=== PATIENT | male | born 1940 | race Hispanic/Latino ===

== ENCOUNTER 2019-12-27 07:18 | Observation (INO) | payer SELFPAY ==
--- NOTE | 2019-12-27 07:50 | RAD ---
XR Chest 1 View Portable History: Chest pain with shortness of breath Comparison: None. Findings: Mild ectasia of the ascending aorta. Mild background lung hyperinflation. No pneumothorax. No significant effusion. No airspace consolidation. No acute osseous abnormality. Impression: 1. Mild ectasia of the aorta with prominence of the pulmonary arteries suggestive pulmonary hypertens ion. No evidence for pneumonia. 2. Mild background emphysema.
[2019-12-27 08:06] LABS: #Lymphocytes 1.2 thou/uL (1.20-3.40); #Monocytes 0.7 thou/uL (0.11-0.59); #Neutrophils 7.2 thou/uL (1.40-6.50); %Basophils 0.4 % (0.0-1.0); %Eosinophils 0.4 % (0.0-10.0); %Monocytes 7.6 % (0.0-10.0); %Neutrophils 78.5 % (42.0-75.0); Hemoglobin 16.4 g/dL (14.0-18.0); Mean Corpuscular HGB CONC 33.7 g/dL (32.0-36.0); Mean Corpuscular Hemoglobin 30.6 pg (27.0-31.0); Mean Corpuscular Volume 90.7 fL (78.0-98.0); Mean Platelet Volume 8.5 fL (7.4-10.4); Platelet Count 181 thou/uL (130-400); RBC Distribution Width 12.5 % (11.5-14.5); Red Blood Cell (RBC) Count 5.36 mill/uL (4.70-6.10); White Blood Cell (WBC) Count 9.1 thou/uL (4.8-10.8)
[2019-12-27] MEDS ORDERED: Cefepime 2 GM VIAL ONE (08:11)
[2019-12-27 08:31] LABS: ALT (SGPT) 36 U/L (8-55); AST (SGOT) 37 U/L (5-34); Albumin 4.6 g/dL (3.4-4.8); Alkaline Phosphatase 100 U/L (40-110); Anion Gap 14 mmol/L (10-20); BUN (Urea Nitrogen) 12 mg/dL (8.4-25.7); Bilirubin, Total 0.4 mg/dL (0.2-1.2); Calc. Creatinine Clearance 0 mL/min (70-130); Calcium 9.5 mg/dL (7.8-10.44); Carbon Dioxide 29 mmol/L (23-31); Chloride 99 mmol/L (98-107); Estimated GFR-MDRD 64; Globulin 4.1 g/dL (2.4-3.5); Glucose 105 mg/dL (83-110); Potassium 3.5 mmol/L (3.5-5.1); Protein, Total 8.7 g/dL (5.8-8.1); Sodium 138 mmol/L (136-145)
[2019-12-27] MEDS ORDERED: Oseltamivir 75 MG CAP PO SCH (09:00)
[2019-12-27] MEDS ORDERED: Acetaminophen 500 MG TAB ONE (09:06)
[2019-12-27 09:09] LABS: Bacteria/HPF 4+ HPF (None Seen); Bilirubin Negative (Negative); Blood, Urine 1+ (Negative); Clarity Turbid (Clear); Glucose, Urine (Dipstick) Normal (Negative); Leukocyte 500 Leu/uL (Negative); Nitrite 2+ (Negative); Protein, Urine (Dipstick) 10 mg/dL (Neg-Trace); Squamous Epithelial None Seen HPF (0-3); Urobilinogen Normal mg/dL (Less than 2); WBC/HPF Greater than 50 HPF (0-3)
--- NOTE | 2019-12-27 10:02 | PDOC.HHP ---
Hospitalist HPI - History of Present Illness SOB, Chest pain History of Present Illness: The patient is [place] speaking, so an medical care evaluation specialist was used for the H&P in the ER. The patient is a 79/M with PMH significant for HTN presents to the ER for chest pain and sob x 1 day. The patient reports generalized chest pain, describes as aching, only hurts when he coughs, reports cough is non productive, has associated fever, chills, body aches and sore throat. Denies heart palpitations , dizziness, diaphoresis, orthopnea, lower extremity swelling. Denies any unexpected weight loss, lives in single family dwelling. Taking nothing for symptoms. He lives in [place], he has been in the [place] for the past 2 months with his family. ED Course: BP: 166/105, Pulse: 120, Resp: 22, Temp: 102.5 (Oral), Pain: 10, O2 sat: 94 on ( Room Air) EKG Sinus tachycardia CXR negative for PNA Troponin negative BNP unremarkable Influenza A positive LA 2.0 WBC 9.1 UA consistent for UTI Given Duoneb Tylenol 1gm Cefipime and vanc IVPB Tamiflu 75mg z 1 dose 1L NS Hospitalist ROS - Review of Systems Constitutional: reports: fever, chills, malaise Eyes: denies: pain, vision change, conjunctivae inflammation, eyelid inflammation, redness, other ENT: reports: throat pain. denies: ear pain, ear discharge, nose pain, nose discharge, nose congestion Respiratory: reports: cough, dry, shortness of breath, pleuritic pain. denies: hemoptysis Cardiovascular: denies: chest pain, palpitations, orthopnea, paroxysmal noc. dyspnea, edema, light headedness Gastrointestinal: denies: nausea, vomiting, abdominal pain, diarrhea, constipation, melena, hematochezia, other Genitourinary: denies: dysuria, frequency, incontinence, hematuria, retention, other Skin: denies: rash, lesions, bruising Neurological: denies: weakness, numbness, incoordination, change in speech Hospitalist History - Past Medical History Cardiac: reports: HTN Renal/: reports: Benign prostatic enlarg. 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 - Exam General Appearance: ill appearing Eye: anicteric sclera ENT: normocephalic atraumatic Neck: supple, no JVD, no thyromegaly, no lymphadenopathy Heart: RRR, no murmur, no gallops, no rubs, normal peripheral pulses Respiratory: no rales, no ronchi Respiratory - other findings: BLL exp wheezes Gastrointestinal: soft, non-tender, normal bowel sounds, no guarding, no rigidity Gastrointestinal - other findings: No CVAT Extremities: no cyanosis, no edema Skin: no lesions, no rashes Neurological: cranial nerve grossly intact, no focal deficits Musculoskeletal: normal strength Psychiatric: normal affect, A&O x 3 Hospitalist Results - Labs Result Diagrams: 12/27/19 07:36 12/27/19 07:36 Lab results: WBC 9.1 thou/uL (4.8-10.8) 12/27/19 07:36 Hgb 16.4 g/dL (14.0-18.0) 12/27/19 07:36 Hct 48.6 % (42.0-52.0) 12/27/19 07:36 MCV 90.7 fL (78.0-98.0) 12/27/19 07:36 Plt Count 181 thou/uL (130-400) 12/27/19 07:36 Neutrophils % 78.5 % (42.0-75.0) H 12/27/19 07:36 Sodium 138 mmol/L (136-145) 12/27/19 07:36 Potassium 3.5 mmol/L (3.5-5.1) 12/27/19 07:36 Chloride 99 mmol/L (98-107) 12/27/19 07:36 Carbon Dioxide 29 mmol/L (23-31) 12/27/19 07:36 BUN 12 mg/dL (8.4-25.7) 12/27/19 07:36 Creatinine 1.12 mg/dL (0.7-1.3) 12/27/19 07:36 Glucose 105 mg/dL (83-110) 12/27/19 07:36 Lactic Acid 2.0 mmol/L (0.5-2.2) 12/27/19 07:36 Calcium 9.5 mg/dL (7.8-10.44) 12/27/19 07:36 Total Bilirubin 0.4 mg/dL (0.2-1.2) 12/27/19 07:36 AST 37 U/L (5-34) H 12/27/19 07:36 ALT 36 U/L (8-55) 12/27/19 07:36 Alkaline Phosphatase 100 U/L (40-110) 12/27/19 07:36 Troponin I 0.013 ng/mL (< 0.028) 12/27/19 07:36 B-Natriuretic Peptide Less than 10.0 pg/mL (0-100) 12/27/19 07:36 Serum Total Protein 8.7 g/dL (5.8-8.1) H 12/27/19 07:36 Albumin 4.6 g/dL (3.4-4.8) 12/27/19 07:36 Urine Ketones Negative mg/dL (Negative) 12/27/19 08:10 Urine Blood 1+ (Negative) A 12/27/19 08:10 Urine Nitrite 2+ (Negative) A 12/27/19 08:10 Ur Leukocyte Esterase 500 Julianne/uL (Negative) A 12/27/19 08:10 Urine RBC 7-10 HPF (0-3) A 12/27/19 08:10 Urine WBC Greater than 50 HPF (0-3) A 12/27/19 08:10 Ur Squamous Epith Cells None Seen HPF (0-3) 12/27/19 08:10 Urine Bacteria 4+ HPF (None Seen) A 12/27/19 08:10 Additional comment: Laboratory Tests 12/27/19 12/27/19 12/27/19 07:36 07:36 07:36 Lactic Acid 2.0 Troponin I 0.013 B-Natriuretic Peptide Less than 10.0 - EKG Interpretation EKG: Sinus tachycardia, no ST elevations - Radiology Interpretation Chest x-ray Status: report reviewed by me Hospitalist H&P A/P - Plan Plan: Wells PE score 1.5, low risk Impression: Sepsis Influenza A, acute UTI, acute HTN, chronic BPH, chronic Plan: IVF resuscitation Continue Tamiflu Droplet precautions Duonebs, cough meds prn get Procalcitonin, TSH, CE x 2 Blood CX pending Start rocephin tomorrow order Urine culture Restart home meds when reconciled Full Code DPOA daughter, Carrie [phone]
[2019-12-27 12:43] LABS: Troponin I Less than 0.010 ng/mL (< 0.028)
[2019-12-27] MEDS: Acetaminophen 325 MG TAB PO PRN ×2 (15:44→20:32)
[2019-12-27] MEDS: Guaifenesin DM 100-10/5 ML UDCUP PO PRN (15:44)
[2019-12-27 15:52] VITALS: BMI 25.9
[2019-12-27 16:07] LABS: Troponin I Less than 0.010 ng/mL (< 0.028)
[2019-12-27] MEDS: Sodium Chloride 0.9% 1,000 ML IV SCH (16:54)
[2019-12-27] MEDS: Oseltamivir 75 MG CAP PO SCH (20:32)
[2019-12-27] MEDS: Benzonatate 100 MG CAP PO PRN (20:32)
[2019-12-28] MEDS: Sodium Chloride 0.9% 1,000 ML IV SCH ×3 (01:44→09:03)
[2019-12-28] MEDS: Acetaminophen 325 MG TAB PO PRN ×4 (01:46→20:10)
[2019-12-28] MEDS: Guaifenesin DM 100-10/5 ML UDCUP PO PRN ×4 (01:46→20:09)
[2019-12-28 05:38] LABS: Hemoglobin 12.4 g/dL (14.0-18.0); Mean Corpuscular HGB CONC 34.5 g/dL (32.0-36.0); Mean Corpuscular Hemoglobin 31.3 pg (27.0-31.0); Mean Corpuscular Volume 90.7 fL (78.0-98.0); Mean Platelet Volume 8.1 fL (7.4-10.4); Platelet Count 128 thou/uL (130-400); RBC Distribution Width 12.4 % (11.5-14.5); Red Blood Cell (RBC) Count 3.97 mill/uL (4.70-6.10); White Blood Cell (WBC) Count 5.2 thou/uL (4.8-10.8)
[2019-12-28 05:40] LABS: ALT (SGPT) 25 U/L (8-55); AST (SGOT) 31 U/L (5-34); Albumin 3.1 g/dL (3.4-4.8); Alkaline Phosphatase 59 U/L (40-110); Anion Gap 11 mmol/L (10-20); BUN (Urea Nitrogen) 13 mg/dL (8.4-25.7); Bilirubin, Total 0.4 mg/dL (0.2-1.2); Calc. Creatinine Clearance 75 mL/min (70-130); Calcium 7.7 mg/dL (7.8-10.44); Carbon Dioxide 24 mmol/L (23-31); Chloride 104 mmol/L (98-107); Estimated GFR-MDRD 84; Globulin 2.7 g/dL (2.4-3.5); Glucose 96 mg/dL (83-110); Potassium 3.3 mmol/L (3.5-5.1); Protein, Total 5.8 g/dL (5.8-8.1); Sodium 136 mmol/L (136-145)
[2019-12-28 06:16] LABS: Band 7 % (5-11); Eosinophils 1 % (0-10); Lymphocytes 17 % (21-51); MDiff Complete? YES; Monocytes 17 % (0-10); Neutrophil 56 % (42-75); Reactive Lymphocytes 2 % (0-10)
[2019-12-28] MEDS ORDERED: FLU VACC TS2019-20(65YR UP)/PF 180 MCG/0.5 ML SYRINGE IM ONE (09:00)
[2019-12-28] MEDS ORDERED: Prevnar 13-Val Conj/PF 0.5 ML SYRINGE IM ONE (09:00)
[2019-12-28] MEDS: cefTRIAXone\\ROCEPHIN 1 GM in Sodium Chloride 0.9% 100 ML IVPB SCH (09:02)
[2019-12-28] MEDS: Oseltamivir 75 MG CAP PO SCH ×2 (09:02→20:09)
[2019-12-28] MEDS: Benzonatate 100 MG CAP PO PRN ×2 (10:57→16:16)
--- NOTE | 2019-12-28 17:39 | PDOC.HOSPP ---
- Subjective Encounter Date: 12/28/19 Encounter Time: 07:00 Subjective: Pt seen for followup re: sepsis. feels slightly better. - Objective Vital Signs & Weight: Vital Signs (12 hours) Temp Pulse Pulse Pulse Resp BP BP 12/28/19 16:12 100.2 F H 70 21 H 12/28/19 11:24 99.5 F 76 22 H 12/28/19 11:10 73 68 150/85 H 12/28/19 08:49 100.3 F H 69 20 125/66 BP BP Pulse Ox 12/28/19 16:12 121/66 100 12/28/19 11:24 150/85 H 93 L 12/28/19 11:10 199/80 H 12/28/19 08:49 100 Weight Weight 165 lb 3.2 oz I&O: 12/27/19 12/28/19 12/29/19 06:59 06:59 06:59 Intake Total 1440 Balance 1440 Result Diagrams: 12/28/19 04:30 12/28/19 04:30 Additional Labs: Labs and MARs reviewed by me EKG Reviewed by me: Yes (Tele; NSR) Hospitalist ROS - Review of Systems Constitutional: reports: fever, weakness. denies: chills, sweats, malaise Respiratory: reports: cough, sputum. denies: dry, shortness of breath, hemoptysis, SOB with excertion, pleuritic pain, wheezing Cardiovascular: denies: chest pain, palpitations, orthopnea, paroxysmal noc. dyspnea, edema, light headedness Gastrointestinal: denies: nausea, vomiting, abdominal pain, diarrhea, constipation, melena, hematochezia Genitourinary: denies: dysuria, frequency, incontinence, hematuria, retention - Medication Medications: Active Medications Generic Name Dose Route Start Last Admin Trade Name Freq PRN Reason Stop Dose Admin Acetaminophen 650 mg 12/27/19 09:38 12/28/19 16:16 Tylenol PO 650 mg Q4H PRN Administration Headache/Fever/Mild Pain (1-3) Benzonatate 100 mg 12/27/19 09:48 12/28/19 16:16 Tessalon PO 100 mg TIDPRN PRN Administration Cough Guaifenesin/Dextromethorphan 15 ml 12/27/19 09:38 12/28/19 16:16 Robitussin Dm PO 15 ml Q4H PRN Administration Cough Sodium Chloride 1,000 mls @ 120 mls/hr 12/27/19 09:45 12/28/19 09:03 Normal Saline 0.9% IV 1,000 mls .Q8H20M MARTINA Administration Ceftriaxone Sodium 1 gm/ 100 mls @ 200 mls/hr 12/28/19 09:00 12/28/19 09:02 Sodium Chloride IVPB 100 mls Q24HR MARTINA Administration Oseltamivir Phosphate 75 mg 12/27/19 21:00 12/28/19 09:02 Tamiflu PO 01/01/20 09:01 75 mg BID MARTINA Administration - Exam General Appearance: NAD Eye: anicteric sclera ENT: no oropharyngeal lesions Neck: supple, symmetric, no thyromegaly, no lymphadenopathy Heart: RRR, no gallops, no rubs, normal peripheral pulses Respiratory: no rales, no ronchi, normal chest expansion, wheezes Gastrointestinal: soft, non-tender, normal bowel sounds, no palpable masses Skin: no rashes Psychiatric: normal affect, normal behavior, oriented to person, oriented to place Hosp A/P - Plan Assessment: Sepsis, acute Influenza A, acute UTI, acute HTN, chronic BPH, chronic Plan: Sepsis secondary to Influenza A/UTI. Continue Tamiflu Droplet precautions Duonebs, cough meds prn Blood CX pending Continue ceftriaxone order Urine culture Full Code
[2019-12-29] MEDS: Sodium Chloride 0.9% 1,000 ML IV SCH ×3 (02:55→21:06)
[2019-12-29] MEDS: Acetaminophen 325 MG TAB PO PRN (09:47)
[2019-12-29] MEDS: cefTRIAXone\\ROCEPHIN 1 GM in Sodium Chloride 0.9% 100 ML IVPB SCH (09:48)
[2019-12-29] MEDS: Benzonatate 100 MG CAP PO PRN ×2 (09:48→17:25)
[2019-12-29] MEDS: Guaifenesin DM 100-10/5 ML UDCUP PO PRN ×2 (09:48→17:25)
[2019-12-29] MEDS: Oseltamivir 75 MG CAP PO SCH ×2 (09:48→21:05)
--- NOTE | 2019-12-29 14:03 | PDOC.HOSPP ---
- Subjective Encounter Date: 12/29/19 Encounter Time: 14:01 Subjective: Pt seen for followup re: - Objective Vital Signs & Weight: Vital Signs (12 hours) Temp Pulse Resp BP BP Pulse Ox 12/29/19 11:28 98.4 F 63 20 152/90 H 100 12/29/19 08:23 98.4 F 65 18 165/78 H 98 12/29/19 03:49 98.4 F 64 18 169/80 H 94 L Weight Weight 165 lb 3.2 oz I&O: 12/28/19 12/29/19 12/30/19 06:59 06:59 06:59 Intake Total 1440 3420 Balance 1440 3420 Result Diagrams: 12/28/19 04:30 12/28/19 04:30 Hospitalist ROS - Medication Medications: Active Medications Generic Name Dose Route Start Last Admin Trade Name Freq PRN Reason Stop Dose Admin Acetaminophen 650 mg 12/27/19 09:38 12/29/19 09:47 Tylenol PO 650 mg Q4H PRN Administration Headache/Fever/Mild Pain (1-3) Benzonatate 100 mg 12/27/19 09:48 12/29/19 09:48 Tessalon PO 100 mg TIDPRN PRN Administration Cough Guaifenesin/Dextromethorphan 15 ml 12/27/19 09:38 12/29/19 09:48 Robitussin Dm PO 15 ml Q4H PRN Administration Cough Sodium Chloride 1,000 mls @ 120 mls/hr 12/27/19 09:45 12/29/19 09:49 Normal Saline 0.9% IV 1,000 mls .Q8H20M MARTINA Administration Ceftriaxone Sodium 1 gm/ 100 mls @ 200 mls/hr 12/28/19 09:00 12/29/19 09:48 Sodium Chloride IVPB 100 mls Q24HR MARTINA Administration Oseltamivir Phosphate 75 mg 12/27/19 21:00 12/29/19 09:48 Tamiflu PO 01/01/20 09:01 75 mg BID MARTINA Administration Sodium Chloride 10 ml 12/27/19 09:38 12/29/19 09:48 Flush - Normal Saline IVF 10 ml Q12H PRN Administration Saline Flush Hosp A/P - Plan Assessment: Sepsis, acute Influenza A, acute UTI, acute HTN, chronic BPH, chronic Plan: Sepsis secondary to Influenza A/UTI. Continue Tamiflu Droplet precautions Duonebs, cough meds as needed Blood CX pending Continue ceftriaxone, follow urine culture. P{t takes Tamsulosin at home, resume.
[2019-12-29] MEDS ORDERED: Tamsulosin HCl 0.4 MG CAP PO SCH (21:00)
[2019-12-30] MEDS: Sodium Chloride 0.9% 1,000 ML IV SCH (06:11)
[2019-12-30] MEDS: cefTRIAXone\\ROCEPHIN 1 GM in Sodium Chloride 0.9% 100 ML IVPB SCH (08:40)
[2019-12-30] MEDS: Guaifenesin DM 100-10/5 ML UDCUP PO PRN (08:41)
[2019-12-30] MEDS: Benzonatate 100 MG CAP PO PRN (08:41)
[2019-12-30] MEDS: Oseltamivir 75 MG CAP PO SCH (08:41)
[2019-12-30] MEDS ORDERED: Sulfameth/Trimethoprim SS 400-80MG TAB PO SCH (10:00)
[2019-12-30 12:00] VITALS: BP 166/93; TEMP 98.2
--- NOTE | 2019-12-30 14:55 | DIS ---
DATE OF ADMISSION: 12/27/2019 DATE OF DISCHARGE: 12/30/2019 DISCHARGE DISPOSITION: Home. FOLLOWUP: Follow up with primary care physician at [facility] in 1 week. ALLERGIES: NO KNOWN DRUG ALLERGIES. DISCHARGE MEDICATIONS: 1. Tamiflu 75 mg twice daily. 2. Bactrim double strength one tablet b.i.d. 3. Flomax 0.4 mg at bedtime. 4. Enalapril 10 mg b.i.d. 5. Mucinex twice daily. The patient was seen and examined on the day of discharge. Denies any new complaints. Dry cough is improving. BRIEF HOSPITAL COURSE: The patient is a 79-year-old male, who presented to the emergency room with chest discomfort along with cough and shortness of breath of one day duration. The cough was nonproductive. His workup was consistent with influenza A positive along with UTI from E coli. His blood cultures remained negative. His temperature in the emergency room was 102.5 with heart rate of 120 and respirations of 22. Over the last 24 to 36 hours, he has been afebrile. He showed good improvement with Tamiflu and IV ceftriaxone. Antibiotics will be switched to oral. He will benefit from an outpatient urology evaluation for benign prostatic hypertrophy. He appears stable for discharge. FINAL DIAGNOSES: 1. Sepsis secondary to influenza A and Escherichia coli urinary tract infection. 2. Hypertension. 3. Benign prostatic hypertrophy. 4. Generalized weakness secondary to above. 5. Hypokalemia, replaced. 6. Chronic kidney disease, stage 2. 7. Slightly abnormal LFTs, improved. 8. Chronic anemia. The patient understands the above plan of care. Job ID: [id number]
== END 2019-12-30 13:45 | disposition home or self-care (01) ==
LOC: ERS 07:18 → ERHOLD 09:05 → 2NO 14:48
PROVIDERS: ADMIT Internal Medicine; ATTEND Internal Medicine
DX: A41.9 Sepsis, unspecified organism (principal); J10.1 Influenza due to other identified influenza virus with other respiratory manifestations; N30.90 Cystitis, unspecified without hematuria; B96.20 Unspecified Escherichia coli [E. coli] as the cause of diseases classified elsewhere; N40.0 Benign prostatic hyperplasia without lower urinary tract symptoms; E87.6 Hypokalemia; I12.9 Hypertensive chronic kidney disease with stage 1 through stage 4 chronic kidney disease, or unspecified chronic kidney disease; N18.2 Chronic kidney disease, stage 2 (mild); D63.1 Anemia in chronic kidney disease; R94.5 Abnormal results of liver function studies; Z79.899 Other long term (current) drug therapy
CPT/HCPCS: 36415; 71045; 80053; 81003; 81015; 83605; 83735; 83880; 84145; 84443; 84484; 85025; 87040; 87077; 87086; 87186; 87804; 90471; 90670; 93005; 94640; 96360; 96361; 96365; 96367; 96375; 96376; G0009; G0378; J0692; J0696; J3370; J3490; J7620